=== PATIENT | female | born 1990 | race Caucasian/White ===

== ENCOUNTER 2020-03-18 16:20 | Emergency (ER) | payer OTHER ==
[2020-03-18] MEDS ORDERED: NITROFURAN MACRO 100 MG CAP PO ONE (17:01)
[2020-03-18 17:16] LABS: Urine Bacteria 20-50 /HPF (<20); Urine Culture Reflex Order REFLEXED; Urine Mucus 1+ /HPF (NONE SEEN)
[2020-03-18 17:17] LABS: Urine Blood 2+ (NEG); Urine Glucose NEGATIVE (NEG); Urine Protein 2+ (NEG); Urine pH 6.5 (5.0-7.0)
[2020-03-18 17:30] LABS: BUN Blood Urea Nitrogen 10 mg/dL (7-18); Bicarbonate 27 mmol/L (21-32); Glucose Level 93 mg/dL (74-106); Potassium 3.6 mmol/L (3.5-5.1); Sodium Level 139 mmol/L (136-145)
[2020-03-18 17:37] LABS: Absolute Lymphocytes (CBC) 2.2 K/uL (0.7-4.9); Basophils % 0.4 % (0-1.3); Hematocrit 35.4 % (36.0-45.0); Lymphocytes % 17.9 % (15.3-44.8); MPV 10.5 fL (7.6-11.3); RBC Red Blood Cell Count 3.88 M/uL (3.86-4.86)
--- NOTE | 2020-03-18 18:19 | RAD REPORT ---
EXAM DESCRIPTION: CT - Abdomen Pelvis W Contrast - 03/18/2020 5:55 pm CLINICAL HISTORY: Abdominal pain COMPARISON: none. TECHNIQUE: Computed axial tomography of the abdomen pelvis was obtained. 100 cc Isovue-300 was admin istered intravenously. Oral contrast was not requested which limits evaluation of bowel and appendix. All CT scans are performed using dose optimization technique as appropriate and may include automated exposure control or mA/KV adjustment according to patient size. FINDINGS: A 3 centimeter low to intermediate density area within the right kidney extending peripher ally. Enhancement of the right renal pelvis and right ureter wall. The liver, spleen, pancreas, adrenal and left kidney appear unremarkable. There is no evidence of diverticulitis. Appendix is not visualized IMPRESSION: These findings likely indicate right pyelonephritis/ureteritis
--- NOTE | 2020-03-18 18:32 | ER ---
Nurse's Notes [facility] Name: Gretchen Quintero Age: 29 yrs Sex: Female : 1990 Arrival Date: 03/18/2020 Time: 16:22 Bed 4 Private MD: Diagnosis: Acute tubulo-interstitial nephritis;Urinary tract infection, site not specified Presentation: 03/18 16:25 Chief complaint: Patient states: burning with urination x 2 weeks ago, pt states "It aa5 hurts really bad when I pee but it went away and now it's back". pt also reports RLQ pain x 2-3 days ago. Pt denies nausea/vomiting/diarrhea. Coronavirus screen: Client denies travel out of the [place] in the last 14 days. At this time, the client does not indicate any symptoms associated with coronavirus-19. Ebola Screen: Patient negative for fever greater than or equal to 101.5 degrees Fahrenheit, and additional compatible Ebola Virus Disease symptoms. Initial Sepsis Screen: Does the patient meet any 2 criteria? No. Patient's initial sepsis screen is negative. Does the patient have a suspected source of infection? No. Patient's initial sepsis screen is negative. Risk Assessment: Do you want to hurt yourself or someone else? Patient reports no desire to harm self or others. Onset of symptoms was 2020. 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 - Social history:: Smoking status: Patient reports the use of cigarette tobacco products, smokes one-half pack cigarettes per day. Screenin:15 Abuse screen: Denies threats or abuse. Denies injuries from another. Nutritional jl7 screening: No deficits noted. Tuberculosis screening: No symptoms or risk factors identified. Fall Risk IV access (20 points). Total Grewal Fall Scale indicates No Risk (0-24 pts). Assessment: 16:45 General: Appears in no apparent distress. comfortable, Behavior is calm, cooperative, jl7 appropriate for age. Pain: Complains of pain in right lower quadrant Pain currently is 4 out of 10 on a pain scale. Pain began 2-3 days ago. Is continuous. Neuro: Level of Consciousness is awake, alert, obeys commands, Oriented to person, place, time, situation. Cardiovascular: Patient's skin is warm and dry. Respiratory: Airway is patent Respiratory effort is even, unlabored, Respiratory pattern is regular, symmetrical. GI: Abdomen is flat, non-distended, Stools are reported to be normal. Last BM was March 18, 2020. Reports lower abdominal pain, Patient currently denies constipation, diarrhea, nausea, vomiting. 16:45 : Reports burning with urination. Derm: Skin is pink, warm \\T\\ dry. jl7 18:19 Reassessment: Patient appears in no apparent distress at this time. No changes from jl7 previously documented assessment. Patient and/or family updated on plan of care and expected duration. Pain level reassessed. Patient is alert, oriented x 3, equal unlabored respirations, skin warm/dry/pink. Vital Signs: 16:26 BP 103 / 70; Pulse 94; Resp 18 S; Temp 99.4(O); Pulse Ox 99% on R/A; Weight 54.43 kg aa5 (R); Height 5 ft. 4 in. (162.56 cm) (R); Pain 3/10; 16:45 BP 98 / 68; Pulse 88; Resp 17; Temp 99.5(O); Pulse Ox 100% ; jl7 18:18 BP 100 / 67; Pulse 85; Resp 17; Pulse Ox 100% ; jl7 16:26 Body Mass Index 20.60 (54.43 kg, 162.56 cm) aa5 ED Course: 16:22 Patient arrived in ED. ag5 16:26 Triage completed. aa5 16:27 Arm band placed on Patient placed in an exam room, on a stretcher. aa5 16:28 Nani Kenyon FNP-C is [facility]. kb 16:28 Angel Luis Hagan MD is Attending Physician. kb 16:47 Ezio Gomes RN is Primary Nurse. jl7 17:00 Missed attempt(s): 20 gauge in left forearm. Bleeding controlled, band aid applied, jl7 catheter tip intact. 17:05 Initial lab(s) drawn, by wa, sent to lab. Inserted saline lock: 20 gauge in left wrist, jl7 using aseptic technique. Blood collected. 17:15 Patient has correct armband on for positive identification. Bed in low position. Call jl7 light in reach. Side rails up X 1. Pulse ox on. NIBP on. 17:55 CT Abd/Pelvis - IV Contrast Only In Process Unspecified. EDMS 18:37 No provider procedures requiring assistance completed. IV discontinued, intact, jl7 bleeding controlled, No redness/swelling at site. Pressure dressing applied. Administered Medications: 16:50 Drug: Macrobid 100 mg Route: PO; jl7 18:19 Follow up: Response: No adverse reaction jl7 Outcome: 18:31 Discharge ordered by . kb 18:37 Discharged to home ambulatory. jl7 18:37 Condition: stable 18:37 Discharge instructions given to patient, Instructed on discharge instructions, follow up and referral plans. medication usage, Demonstrated understanding of instructions, follow-up care, medications, Prescriptions given X 1. 18:38 Patient left the ED. jl7 Addendum: 03/22/2020 08:50 Addendum: Culture Results: Positive urine culture. No further action required. Bacteria a a5 sensitive to prescribed antibiotic. Signatures: Dispatcher [employer] EDMS Nani Kenyon, COMMUNITY OUTREACH DIRECTOR-C COMMUNITY OUTREACH DIRECTOR-Anais Bah, RN RN aa5 Ezio Gomes RN RN jl7 Zoë Santos ag5
--- NOTE | 2020-03-18 18:33 | EDPHYS ---
Physician Documentation [facility] Name: Gretchen Quintero Age: 29 yrs Sex: Female : 1990 Arrival Date: 03/18/2020 Time: 16:22 Bed 4 Private MD: ED Physician Angel Luis Hagan HPI: 03/18 19:09 This 29 yrs old Female presents to ER via Ambulatory with complaints of kb Urinary Problem, Abdominal Pain. 19:09 The patient presents with urinary symptoms, dysuria. Onset: The symptoms/episode kb began/occurred 2 week(s) ago. Modifying factors: The symptoms are alleviated by nothing, the symptoms are aggravated by urinating. Associated signs and symptoms: Pertinent positives: dysuria, abd pain. Severity of symptoms: At their worst the symptoms were moderate, in the emergency department the symptoms are unchanged. The patient has not experienced similar symptoms in the past. The patient has not recently seen a physician. Pt reports dysuria for 2 weeks that she has been trying to treat at home. Now has dysuria plus RLQ pain. 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 - Social history:: Smoking status: Patient reports the use of cigarette tobacco products, smokes one-half pack cigarettes per day. ROS: 19:08 Constitutional: Negative for fever, chills, and weight loss, Cardiovascular: Negative kb for chest pain, palpitations, and edema, Respiratory: Negative for shortness of breath, cough, wheezing, and pleuritic chest pain, Back: Negative for injury and pain, MS/Extremity: Negative for injury and deformity, Skin: Negative for injury, rash, and discoloration, Neuro: Negative for headache, weakness, numbness, tingling, and seizure. 19:08 Abdomen/GI: Positive for abdominal pain, Negative for nausea, vomiting, and diarrhea. 19:08 : Positive for burning with urination. Exam: 19:08 Constitutional: This is a well developed, well nourished patient who is awake, alert, kb and in no acute distress. Head/Face: Normocephalic, atraumatic. Chest/axilla: Normal chest wall appearance and motion. Nontender with no deformity. No lesions are appreciated. Cardiovascular: Regular rate and rhythm with a normal S1 and S2. No gallops, murmurs, or rubs. Normal PMI, no JVD. No pulse deficits. Respiratory: Lungs have equal breath sounds bilaterally, clear to auscultation and percussion. No rales, rhonchi or wheezes noted. No increased work of breathing, no retractions or nasal flaring. Back: No spinal tenderness. No costovertebral tenderness. Full range of motion. Skin: Warm, dry with normal turgor. Normal color with no rashes, no lesions, and no evidence of cellulitis. MS/ Extremity: Pulses equal, no cyanosis. Neurovascular intact. Full, normal range of motion. Neuro: Awake and alert, GCS 15, oriented to person, place, time, and situation. Cranial nerves II-XII grossly intact. Motor strength 5/5 in all extremities. Sensory grossly intact. Cerebellar exam normal. Normal gait. 19:08 Abdomen/GI: Inspection: abdomen appears normal, Bowel sounds: normal, in all quadrants, Palpation: soft, in all quadrants, moderate abdominal tenderness, in the right lower quadrant. Vital Signs: 16:26 BP 103 / 70; Pulse 94; Resp 18 S; Temp 99.4(O); Pulse Ox 99% on R/A; Weight 54.43 kg aa5 (R); Height 5 ft. 4 in. (162.56 cm) (R); Pain 3/10; 16:45 BP 98 / 68; Pulse 88; Resp 17; Temp 99.5(O); Pulse Ox 100% ; jl7 18:18 BP 100 / 67; Pulse 85; Resp 17; Pulse Ox 100% ; jl7 16:26 Body Mass Index 20.60 (54.43 kg, 162.56 cm) aa5 MDM: 16:28 Patient medically screened. kb 19:07 Data reviewed: vital signs, nurses notes. Data interpreted: Pulse oximetry: on room air kb is 100 %. Interpretation: normal. Counseling: I had a detailed discussion with the patient and/or guardian regarding: the historical points, exam findings, and any diagnostic results supporting the discharge/admit diagnosis, lab results, radiology results, the need for outpatient follow up, a family practitioner, to return to the emergency department if symptoms worsen or persist or if there are any questions or concerns that arise at home. 03/18 16:28 Order name: Urine Microscopic Only; Complete Time: 17:19 kb 03/18 16:44 Order name: Basic Metabolic Panel; Complete Time: 17:32 kb 03/18 16:44 Order name: CBC with Diff; Complete Time: 17:52 kb 03/18 16:44 Order name: Urine Dipstick--Ancillary (enter results); Complete Time: 17:19 em1 03/18 16:44 Order name: Urine --Ancillary (enter results); Complete Time: 17:19 em1 03/18 17:18 Order name: Urine Culture EDHI 03/18 16:28 Order name: Urine Test (obtain specimen); Complete Time: 16:43 kb 03/18 16:28 Order name: Urine Dipstick-Ancillary (obtain specimen); Complete Time: 16:43 kb 03/18 16:44 Order name: IV Saline Lock; Complete Time: 17:07 kb 03/18 16:44 Order name: Labs collected and sent; Complete Time: 17:07 kb 03/18 17:33 Order name: CT Abd/Pelvis - IV Contrast Only; Complete Time: 18:30 kb Administered Medications: 16:50 Drug: Macrobid 100 mg Route: PO; jl7 18:19 Follow up: Response: No adverse reaction jl7 Disposition: 03/18/20 18:31 Discharged to Home. Impression: Acute tubulo-interstitial nephritis, Urinary tract infection, site not specified. - Condition is Stable. - Discharge Instructions: Pyelonephritis, Adult, [id number], Urinary Tract Infection, Adult, Teud-sm-Ltle. - Prescriptions for Cipro 500 mg Oral Tablet - take 1 tablet by ORAL route every 12 hours for 7 days; 14 tablet. - Medication Reconciliation Form, Thank You Letter, Antibiotic Education, Prescription Opioid Use form. - Follow up: Emergency Department; When: As needed; Reason: Worsening of condition. Follow up: Private Physician; When: 2 - 3 days; Reason: Recheck today's complaints, Continuance of care, Re-evaluation by your physician. Addendum: 03/23/2020 07:00 Co-signature as Attending Physician, Angel Luis velasquez n Signatures: Dispatcher [employer] EDNani Rhoades, MEAT CARRIER-C MEAT CARRIER-Ckb Angle Luis Hagan MD MD rn Anais Fonseca, RN RN aa5 Ezio Gomes, RN RN jl7 Corrections: (The following items were deleted from the chart) 03/18 18:31 18:31 03/18/2020 18:31 Discharged to Home. Impression: Acute tubulo-interstitial kb nephritis; Urinary tract infection, site not specified. Condition is Stable. Forms are Medication Reconciliation Form, Thank You Letter, Antibiotic Education, Prescription Opioid Use. kb 18:38 18:31 03/18/2020 18:31 Discharged to Home. Impression: Acute tubulo-interstitial jl7 nephritis; Urinary tract infection, site not specified. Condition is Stable. Forms are Medication Reconciliation Form, Thank You Letter, Antibiotic Education, Prescription Opioid Use. Follow up: Emergency Department; When: As needed; Reason: Worsening of condition. Follow up: Private Physician; When: 2 - 3 days; Reason: Recheck today's complaints, Continuance of care, Re-evaluation by your physician. kb
[2020-03-18 19:17] VITALS: TEMP 99.5; O2SAT 100
[2020-03-18 19:19] VITALS: BP 100/67
--- OUTSIDE RECORDS SUMMARY | 2020-03-19 05:22 | XMS REPORT | Clinical Summary ---
:1990 Author Organization [facility] Address [address] [place] [address] Care Team Providers Name Role Phone Unavailable Primary Care Provider Unavailable Allergies Active Allergy Reactions Severity Noted Date Comments Amoxicillin 03/23/2012 Itch, swelling Medications Medication Sig Dispensed Refills Start Date End Date Status haloperidoL Take 1 tablet 180 tablet 1 12/19/2019 Ac tive (HALDOL) 5 mg by mouth 2 tabletIndications: times daily. Hallucinations, visual, Psychosis, unspecified psychosis type benztropine Take 1 tablet 180 tablet 1 12/19/2019 Ac tive (COGENTIN) 0.5 mg by mouth 2 tabletIndications: times daily. Hallucinations, visual, Extrapyramidal symptom albuterol sulfate Inhale 1 Puff 1 Each 5 02/19/2020 Active 90 mcg/actuation by mouth 2 aebsIndications: times daily Uncomplicated as needed for asthma, unspecified Other asthma severity, (shortness of unspecified whether breath). persistent traZODone (DESYREL) Take 1 tablet 180 tablet 0 12/06/201806/11 Discontinued 50 mg by mouth at 20 (Side ef fects) tabletIndications: bedtime Insomnia, nightly Take unspecified type 1-2 tablets by mouth at bedtime as needed for insomnia.. haloperidol Take 1 tablet 180 tablet 0 12/06/2018 06/20/19 Di scontinued (HALDOL) 5 mg by mouth 2 20 (Reor mary) tabletIndications: times daily. Hallucinations, visual mirtazapine Take 1 tablet 90 tablet 0 12/06/2018 06/20/19 Dis continued (REMERON) 15 mg by mouth at 20 (D ose tabletIndications: bedtime a djustment) Insomnia, nightly. unspecified type, Hallucinations, visual, Depression, unspecified depression type benztropine Take 1 tablet 180 tablet 0 12/06/2018 06/20/19 Di scontinued (COGENTIN) 0.5 mg by mouth 2 20 ( Reorder) tabletIndications: times daily. Hallucinations, visual, Extrapyramidal symptom albuterol 90 Inhale 2 3 Inhaler 3 01/09/2019 03/25/20 Discon tinued mcg/actuation Puffs by 19 (Reord er) inhalerIndications: mouth 4 times Shortness of breath daily as needed for Wheezing. albuterol 90 Inhale 2 3 Inhaler 3 03/25/2019 02/19/20 Discon tinued mcg/actuation Puffs by 20 (Dupli juliet inhalerIndications: mouth 4 times Order) Shortness of breath daily as needed for Wheezing. doxycycline Take 1 20 capsule 0 03/25/2019 04/04/20 d monohydrate capsule by 19 (MONODOX) 100 mg mouth 2 times capsuleIndications: daily for 10 Folliculitis days. haloperidol Take 1 tablet 180 tablet 0 06/20/2019 10/03/19 Di scontinued (HALDOL) 5 mg by mouth 2 20 tabletIndications: times daily. Hallucinations, visual benztropine Take 1 tablet 180 tablet 0 06/20/2019 10/03/19 Di scontinued (COGENTIN) 0.5 mg by mouth 2 20 tabletIndications: times daily. Hallucinations, visual, Extrapyramidal symptom mirtazapine Take 1 tablet 90 tablet 0 06/20/2019 10/03/19 Dis continued (REMERON) 30 mg by mouth at 20 tabletIndications: bedtime Insomnia, nightly. unspecified type, Other depression doxepin (SINEQUAN) Take 1 90 capsule 0 06/20/2019 10/03/19 Discontinued 10 mg capsule by 20 capsuleIndications: mouth nightly sleep-onset at bedtime as insomnia needed for Other (insomnia). albuterol sulfate Inhale by 3 Device 2 06/26/2019 02/19/20 D iscontinued 90 mcg/actuation mouth. 20 (Re order) aebsIndications: Uncomplicated asthma, unspecified asthma severity, unspecified whether persistent albuterol 90 Inhale 2 3 Inhaler 0 06/26/2019 08/19/19 Discon tinued mcg/actuation Puffs by 20 inhalerIndications: mouth 4 times Uncomplicated daily as asthma, unspecified needed for asthma severity, Wheezing. unspecified whether persistent ALBUTEROL 90 INHALE 2 25.5 g 3 08/19/2019 02/19/20 Discon tinued mcg/actuation PUFFS BY 20 (Dupli juliet inhalerIndications: MOUTH FOUR Order) Uncomplicated TIMES DAILY asthma, unspecified NEEDED FOR asthma severity, WHEEZING unspecified whether persistent ALBUTEROL 90 INHALE 2 25.5 g 3 08/19/2019 02/19/20 Discon tinued mcg/actuation PUFFS BY 20 (Dupli juliet inhalerIndications: MOUTH FOUR Order) Uncomplicated TIMES DAILY asthma, unspecified NEEDED FOR asthma severity, WHEEZING unspecified whether persistent benztropine Take 1 tablet 60 tablet 0 10/03/2019 11/21/19 Dis continued (COGENTIN) 0.5 mg by mouth 2 20 tabletIndications: times daily. Hallucinations, visual, Extrapyramidal symptom haloperidoL Take 1 tablet 60 tablet 0 10/03/2019 11/21/19 Dis continued (HALDOL) 5 mg by mouth 2 20 tabletIndications: times daily. Hallucinations, visual mirtazapine Take 1 tablet 30 tablet 0 10/03/2019 11/21/19 Dis continued (REMERON) 30 mg by mouth at 20 tabletIndications: bedtime Insomnia, nightly. unspecified type, Other depression doxepin (SINEQUAN) Take 1 30 capsule 0 10/03/2019 11/21/19 Discontinued 10 mg capsule by 20 capsuleIndications: mouth nightly sleep-onset at bedtime as insomnia needed. benztropine Take 1 tablet 60 tablet 0 11/21/2019 12/19/19 Dis continued (COGENTIN) 0.5 mg by mouth 2 20 ( Reorder) tabletIndications: times daily. Hallucinations, visual, Extrapyramidal symptom doxepin (SINEQUAN) Take 1 30 capsule 0 11/21/2019 02/19/20 Discontinued 10 mg capsule by 20 (Therapy capsuleIndications: mouth nightly completed) sleep-onset at bedtime as insomnia needed for Other (insomnia). haloperidoL Take 1 tablet 60 tablet 0 11/21/2019 12/19/19 Dis continued (HALDOL) 5 mg by mouth 2 20 (Reor mary) tabletIndications: times daily. Hallucinations, visual mirtazapine Take 1 tablet 30 tablet 0 11/21/2019 12/19/19 Dis continued (REMERON) 30 mg by mouth at 20 (S lala effects) tabletIndications: bedtime Insomnia, nightly. unspecified type, Other depression Hospital, Clinic, or Other Ordered Dose Route Frequency Start Date End Date Status Facility Administered Medication albuterol (PROVENTIL) 2.5 2.5 mg IN PRN 01/09/2019 Ended mg /3 mL (0.083 %) nebulized solution 2.5 mgIndications: Shortness of breath lidocaine 1 % (XYLOCAINE) 10 mL SC ONCE 03/25/2019 Ended injection 10 mLIndications: Encounter for contraceptive management, unspecified type etonogestrel (NEXPLANON) 68 68 mg Sdrm ONCE 03/25/2019 1 Ended mg subdermal implant 68 mgIndications: Encounter for contraceptive management, unspecified type Active Problems Problem Noted Date Polysubstance abuse 06/18/2013 Substance induced mood disorder 06/18/2013 Borderline personality disorder 06/18/2013 Suicide gesture 06/18/2013 Amphetamine abuse-episodic 06/12/2013 Marijuana abuse 06/12/2013 Cough 06/08/2013 Mood disorder 04/09/2013 Social problem 04/09/2013 Eye swelling, left 03/23/2012 Encounter for medication refill Neuropathy Encounters Date Type Specialty Care Team Description 02/19/2020 Office Visit Internal Medicine Bulmaro Mclean, Dental ca naomy (Primary Dx); ResidentMD Swelling of gland of right eyelid; Maryse Paez, Uncomplicate d asthma, unspecified asthma severity, unspecified whether persistent 02/19/2020 Orders Only Internal Medicine Bulmaro Mclean, ResidentMD 12/19/2019 Telephonic Psychiatry Chetna Anna Psychosis, unspecified psychosis type (Primary Dx); Encounter MD Brian Hallucinations, visual; Extrapyramidal symptom 11/21/2019 Refill Psychiatry Chetna Anna Medications MD Brian 10/01/2019 Refill Psychiatry Chetna Anna MD 08/18/2019 Refill Internal Medicine Maryse Paez, Medicat ions 06/26/2019 Office Visit Internal Medicine Prince Rico MD Uncomplic ated asthma, unspecified ast hma severity, unspe cified whether persist ent (Primary Dx) 06/20/2019 Office Visit Psychiatry Chetna Anna Other willie loomis (Primary Dx); MD Brian Hallucinations, visual; Insomnia, unspe cified type; Extrapyramidal symptom; Noncompliance w ith medication treatment due to underuse of medication 03/25/2019 Ancillary Radiology Shortness of br eath Procedure 03/25/2019 Office Visit Internal Medicine Prince Rico MD Encounter for initial prescription of contraceptives, unspecified contraceptive (Primary Dx); Shortness of br eath; Encounter for c ontraceptive management, unspecified type; Folliculitis after 03/18/2019 Social History Tobacco Use Types Packs/Day Years Used Date Current Every Day Smoker Cigarettes 0.25 8 Smokeless Tobacco: Never Used Tobacco Cessation: Ready to Quit: No; Co unseling Given: Yes Alcohol Use Drinks/Week oz/Week Comments No Food Insecurity Answer Date Recorded Within the past 12 months, you worried that your food would Never true 01/09/2019 run out before you got money to buy more. Within the past 12 months, the food you bought just didn't N ever true 01/09/2019 last and you didn't have money to get more. Sex Assigned at Date Recorded Not on file Job Start Date Occupation Industry Not on file Not on file Not on file Travel History Travel Start Travel End No recent travel history available. COVID-19 Exposure Response Date Recorded In the last month, have you been in contact with No / Unsure 02/19/2020 8:22 AM CDT someone who was confirmed or suspected to have Coronavirus / COVID-19? Last Filed Vital Signs Vital Sign Reading Time Taken Comments Blood Pressure 112/73 02/19/2020 8:44 AM CDT Pulse 66 02/19/2020 8:44 AM CDT Temperature 36.7 C (98.1 F) 02/19/2020 8:44 AM CDT Respiratory Rate 16 02/19/2020 8:44 AM CDT Oxygen Saturation 98% 06/20/2019 2:14 PM [employer] Inhaled Oxygen Concentration - - Weight 57.2 kg (126 lb) 02/19/2020 8:44 AM CDT Height 162.6 cm (5' 4") 02/19/2020 8:44 AM CDT Body Mass Index 21.63 02/19/2020 8:44 AM CDT Plan of Treatment Date Type Specialty Care Team Description 04/22/2020 Telemedicine Psychiatry Chetna Anna MD [address] [place], [place] [address] [phone] 05/20/2020 Office Visit Internal Medicine Bulmaro Mclean, ResidentMD 3 month f/u [address] [place], [place] [address] 07/07/2020 Appointment Ines Verduzco MD sb [address] [place], [place] [address] Health Maintenance Due Date Last Done Comments IMM Influenza Seasonal Mar to August (>/= 19 yrs) 03/11/2020 Cervical Cancer Scrn (1 Yrs) 03/25/2020 03/25/2019 Procedures Procedure Name Priority Date/Time Associated Diagnosis Comme nts XRAY CHEST 2 VIEWS Routine 03/25/2019 2:12 Shortness of breat h Results for PM CDT this procedure are in the results section. QUANTIFERON TB Routine 03/25/2019 1:23 Shortness of breath Re sults for GOLD PLUS (BKR) PM CDT this procedu re are in the results section. TSH 0-REFLEX Routine 03/25/2019 1:23 Shortness of br eath Results for PM CDT Forgetfulness this procedure are in the results section. SYPHILIS SCREEN Routine 03/25/2019 1:23 Encounter for contrac eptive Results for FOR INFECTION PM CDT management, unspecified thi s procedure type are in the results section. VITAMIN B12 Routine 03/25/2019 1:23 Forgetfulness Results fo r PM CDT this procedure are in the results section. QUANTIFERON TB Routine 03/25/2019 1:23 Shortness of breath Re sults for GOLD PM CDT this procedure are in the results section. LIPID PROFILE Routine 03/25/2019 1:23 Screening for Results f or PM CDT hypercholesterolemia this pr ocedure are in the results section. CBC (WITHOUT Routine 03/25/2019 1:23 Shortness of breath Resu lts for DIFFERENTIAL) PM CDT this procedure are in the results section. PHOSPHORUS Routine 03/25/2019 1:23 Shortness of breath Resu lts for PM CDT this procedure are in the results section. MAGNESIUM Routine 03/25/2019 1:23 Shortness of breath Resu lts for PM CDT this procedure are in the results section. BASIC METABOLIC Routine 03/25/2019 1:23 Shortness of breath R esults for PANEL PM CDT this procedure are in the results section. HIV AG/AB COMBO Routine 03/25/2019 1:23 Encounter for contrac eptive Results for ROUTINE SCREENING PM CDT management, unspecified this procedure type are in the Forgetfulness results section. GENITAL WET MOUNT Routine 03/25/2019 11:47 Encounter for initi al Results for WITH LISA AM CDT prescription of this procedu re contraceptives, unspecified are in the contraceptive results section. CHLAM/GC DNA AMPLI Routine 03/25/2019 11:47 Encounter for cont raceptive Results for AM CDT management, unspecified this procedure type are in the results section. PAP TEST CYTOLOGY Routine 03/25/2019 11:46 Encounter for initi al Results for AM CDT prescription of this procedu re contraceptives, unspecified are in the contraceptive results section. HPV HIGH-RISK Routine 03/25/2019 11:46 Encounter for initial R esults for AM CDT prescription of this procedu re contraceptives, unspecified are in the contraceptive results section. TEST STAT 03/25/2019 11:24 Encounter for initial Results for AM CDT prescription of this procedu re contraceptives, unspecified are in the contraceptive results section. GENERAL PROCEDURE Routine 03/25/2019 11:11 Encounter for initi al Results for AM CDT prescription of this procedu re contraceptives, unspecified are in the contraceptive results Encounter for contraceptive section. management, unspecified type after 03/18/2019 Results XRAY CHEST 2 VIEWS (03/25/2019 2:12 PM CDT) Specimen Impressions Performed At IMPRESSION: [facility] No acute thoracic abnormality. Dictated By: Katey Clarke MD, 03/25/2019 2:01 PM I have reviewed the study and agree with the findings in this report. Signed By: Ernesto Donovan MD, 03/25/2019 2: 05 PM Narrative Performed At EXAMINATION: XRAY CHEST 2 VIEWS [facility] INDICATION: shortness of breath and weig ht loss in active smoker COMPARISON: Chest radiograph from 05/12 FINDINGS: PA and lateral views TUBES and LINES: None. LUNGS: Lungs are well inflated. No con solidations or edema. PLEURA: No effusions or pneumothorax. HEART AND MEDIASTINUM: The cardiomedia stinal silhouette is unremarkable. BONES AND SOFT TISSUES: No acute osseo us lesion. Soft tissues are unremarkable. UPPER ABDOMEN: No free air under the carolann phragm. Procedure Note Interface, Rad/Mammog In - 03/25/2019 2 :12 PM CDT EXAMINATION: XRAY CHEST 2 VIEWS INDICATION: shortness of breath and weig ht loss in active smoker COMPARISON: Chest radiograph from 06/08 FINDINGS: PA and lateral views TUBES and LINES: None. LUNGS: Lungs are well inflated. No cons olidations or edema. PLEURA: No effusions or pneumothorax. HEART AND MEDIASTINUM: The cardiomedias tinal silhouette is unremarkable. BONES AND SOFT TISSUES: No acute osseou s lesion. Soft tissues are unremarkable. UPPER ABDOMEN: No free air under the carolann phragm. IMPRESSION IMPRESSION: No acute thoracic abnormality. Dictated By: Katey Clarke MD, 03/25/2019 2:01 PM I have reviewed the study and agree with the findings in this report. Signed By: Ernesto Donovan MD, 03/25/2019 2: 05 PM Performing Organization Address [facility] Phone Number SMS Syphilis Screen for Infection (03/25/2019 1:23 PM CDT) Pathologist Sig nature TPA Negative Negative, Equivocal [facility] Final Report Negative Negative [facility] Specimen Blood - Arm, right Performing Organization Address [facility] Phone Number [facility] [address] [place] [address] QUANTIFERON TB GOLD PLUS (BKR) (03/25/2019 1:23 PM CDT) QuantiFERON Criteria Comment [facility] Comment: The QuantiFERON-TB Gold Plus result is determined by s ubtracting the Nil value from either TB antigen (Ag) tube. The mi togen tube serves as a control for the test. Quantiferon TB1 0.06 IU/mL [facility] Quantiferon TB2 0.04 IU/mL [facility] QuantiFERON Nil Value 0.05 IU/mL [facility] QuantiFERON Mitogen >10.00 IU/mL [facility] Value Specimen Blood - Arm, right Narrative Performed At Performed at: [facility] [address] [id number] Carpenter Helper: Meenu Cadena MD, Phone: [phone] Performing Organization Address [facility] Phone Number [address] [address] HIV-1/HIV-2 Routine Screening (03/25/2019 1:23 PM CDT) Pathologist [facility] HIV Ag/Ab Combo Negative Negative [facility] Specimen Blood - Arm, right Performing Organization Address [facility] Phone Number [facility] [address] [place] [address] [phone] Quantiferon TB Gold (In Tube) (03/25/2019 1:23 PM CDT) Pathologist [facility] QuantiFERON Incubation [facility] Incubation performed. QuantiFERON TB Gold Negative Negative [facility] Plus Specimen Blood - Arm, right Narrative Performed At Performed at: [facility] [id number] Carpenter Helper: David Hatch MD, Phone: [phone] Performed at: [address] [id number] Carpenter Helper: Meenu Cdaena MD, Phone: [phone] Performing Organization Address [facility] Phone Number [phone] [place] [address] Thyroid Stimulating Hormone, Baseline (03/25/2019 1:23 PM CDT) Pathologist [facility] TSH 0 1.77 0.57 - 3.74 [facility] Comment: uIU/mL If , please see the following reference ranges (not verified by lab): 1st Trimester: 0.05 -3.70 uIU/mL 2nd Trimester: 0.31 -4.35 uIU/mL 3rd Trimester: 0.41 - 5.18 uIU/mL Specimen Blood - Arm, right Performing Organization Address [facility] Phone Number [facility] [address] [place] [address] Vitamin B12 (03/25/2019 1:23 PM CDT) Pathologist [facility] nature Vitamin B12 370 See comment pg/mL [facility] Comment: Normal: 180-914 pg/mL Intermittent: 145-180 pg/mL Deficient: <=145.0 pg/mL Specimen Blood - Arm, right Performing Organization Address [facility] Phone Number [facility] [address] [place] [address] Phosphorus (03/25/2019 1:23 PM CDT) Pathologist Sig nature Phosphorus 3.6 2.5 - 5.0 mg/dL [facility] Specimen Blood - Arm, right Performing Organization Address [facility] Phone Number [facility] [place] [address] [facility] [address] [address] Magnesium (03/25/2019 1:23 PM CDT) Pathologist Sig nature Magnesium 1.9 1.9 - 2.7 mg/dL [facility] Specimen Blood - Arm, right Performing Organization Address [facility] Phone Number [facility] [place] [address] [facility] [address] [address] Lipid Profile (03/25/2019 1:23 PM CDT) Cholesterol 141.0 <=200.0 mg/dL [facility] Comment: Desirable: < 200.0 mg/dL Borderline: 200 - 240 mg/dL High Risk: > 240 mg/dL Triglyceride 131 <150 mg/dL [facility] Comment: Normal: < 150.0 mg/dL Borderline: 150-199 mg/dL High: 200-499 mg/dL Very High: >= 500 mg/dL HDL 41.0 See Reference [facility] Comment: Range Narrative. Increased CHD Risk: < 40.0 mg/dL mg/dL Decreased CHD Risk: > 60 mg/dL LDL 74 <100 mg/dL [facility] Comment: Optimal: < 100.0 mg/dL Near Optimal: 120-129 mg/dL Borderline: 130-159 mg/dL High: 160-189 mg/dL Very High: >=190 mg/dL Patient Fasting? Yes [facility] Specimen Blood - Arm, right Performing Organization Address [facility] Phone Number [facility] [place] [address] [phone] [facility] [address] [address] CBC (without differential) (03/25/2019 1:23 PM CDT) Pathologist Sig nature WBC 7.5 4.5 - 11.0 K/uL [facility] RBC 3.98 (L) 4.20 - 5.40 M/uL [facility] Hemoglobin 11.7 (L) 12.0 - 16.0 g/dL [facility] Hematocrit 36.4 (L) 37.0 - 47.0 % [facility] MCV 91.5 82.0 - 92.0 fL [facility] MCH 29.4 27.0 - 32.0 pg [facility] MCHC 32.1 32.0 - 36.0 g/dL [facility] RDW 48.4 (H) 36.4 - 46.3 fL [facility] Platelet 169 150 - 400 K/uL [facility] Mean Platelet Volume 11.8 9.4 - 12.4 fL [facility] Specimen Blood - Arm, right Performing Organization Address City/[facility] Phone Number [facility] [place] [address] [facility] [address] [address] [phone] Basic Metabolic Panel (03/25/2019 1:23 PM CDT) Pathologist Sig nature Sodium 142 136 - 145 mmol/L [facility] Potassium 4.3 3.5 - 5.1 mmol/L [facility] Chloride 107 98 - 107 mmol/L [facility] CO2 27 21 - 31 mmol/L [facility] Urea Nitrogen 10.0 7.0 - 25.0 mg/dL [facility] Creatinine 0.7 0.6 - 1.2 mg/dL [facility] Glucose 97 70 - 110 mg/dL [facility] Calcium 9.3 8.6 - 10.3 mg/dL [facility] GFR, Estimated >90 >=90 mL/min/1.73 m2 [facility] Anion Gap 8 5 - 16 mmol/L [facility] Specimen Blood - Arm, right Performing Organization Address City/[facility] Phone Number [facility] [place] [address] [facility] [address] [address] CHLAM/GC DNA AMPLI [CHGC] (03/25/2019 11:47 AM CDT) Pathologist Sig nature Chlamydia trachomatis Negative Negative [facility] N. gonorrhoeae Negative Negative [facility] Specimen Genital - Voided, urine Narrative Performed At This test utilizes [employer] Aptima Combo 2 Assay for ta rget [facility] amplification of rRNA for the qualitative detection of Chlamydia trachomatis and Neisseria gonorrhoeae. Performing Organization Address City/State/Zipcode Phone Number [facility] [address] [place], [place] [id number] Genital Wet Mount with LISA (03/25/2019 11:47 AM CDT) Yeast by Wet Mount No Yeast seen [facility] Yeast by LISA No Yeast seen [facility] Clue Cells No Clue cells seen [facility] Epithelial Cells Epithelial cells [facility] seen WBCs WBCs seen [facility] Trichomonas No Trichomonas seen [facility] Specimen Genital - Cervix, NOS Performing Organization Address [facility]/Zipcode Phone Number [facility] [place] [address] [facility] [address] [address] Pap Test Cytology (03/25/2019 11:46 AM CDT) Case Report Gynecologic Cytology Report Case: [id number] DI Authorizing Provider: Paul Toth MD Collected: 03/25/2019 11:46 AM LABORATORY Ordering Location: [facility] [place] [facility] Received: 03/25/2019 01:15 PM First Screen: Danyell Mary CT (ASCP) Pathologist: Maria Del Carmen Fikn MD Specimen: Liquid-Based Preparation, manual, Cervicovaginal Specimen Adequacy Satisfactory for [facility] evaluation, LABORATORY endocervical/transfo rmation zone component present General EPITHELIAL CELL [facility] Categorization ABNORMALITY LABORATORY Interpretation ATYPICAL SQUAMOUS [facility] Electron ically CELLS OF LABORATORY signed by KENAN Harrison MD (ASC-US) on 03/31/2019 a t 1:26 PM Non Neoplastic Reactive cellular [facility] Findings changes / Repair LABORATORY Pertinent Clinical overdue for pap [facility] Information smear LABORATORY Educational Note Specimen Received: [facility] One Thinprep Vial Received LABORATORY The pap smear/test is a scre ening test for cervical cancer. As with screening procedures, both false negative and false positive results may occur. Hence, the results should be interpreted in the cont ext of patient's history and current clinical informat ion. History of No [facility] Abnormality LABORATORY Treatment History None/NA [facility] Menstrual Status Pre-menopausal [facility] HPV Vaccine Status No [facility] Current Implant [facility] Contraceptive LABORATORY Specimen Liquid Based Pap - Cervicovaginal Performing Organization Address [facility] Phone Number [facility] [address] [place] [address] HPV High-Risk (03/25/2019 11:46 AM CDT) Pathologist Sig nature HPV High Risk Negative Negative [facility] Specimen Liquid Based Pap - Cervicovaginal Narrative Performed At The [facility] HPV Assay is an in vitro nucleic acid ampli fication [facility] test for the qualitative detection of E6/E7 viral mess enger RNA (mRNA) from 14 high-risk types of human papillomavirus (HPV) in cervical specimens. The high-risk HPV types detected b y the assay include: 16,18,31,33,35,39,45,51,52,56,58,59,66, and 6 8. Performing Organization Address [facility] Phone Number [facility] [address], [place] [id number] [phone] URINE TEST (03/25/2019 11:24 AM CDT) Pathologist Sig nature Negative Negative [facility] Specimen Urine Performing Organization Address [facility] Phone Number [facility] [place] [address] [facility] [address] [place] [address] General Procedure (03/25/2019 11:11 AM CDT) Narrative Performed At Paul Grewal MD 03/27/2019 1: 40 PM General Procedure Date/Time: 03/27/2019 1:39 PM Performed by: Paul Grewal MD Authorized by: Paul Grewal MD Preparation: Patient was prepped and draped in the usu al sterile fashion. Local anesthesia used: yes Anesthesia: local infiltration Anesthesia: Local anesthesia used: yes Local Anesthetic: lidocaine 1% without e pinephrine Anesthetic total: 7 mL Sedation: Patient sedated: no Specimen's removed: nexplanon Estimated blood loss: 2 Grafts and Implants: nexplanon Patient tolerance: Patient tolerated the procedure wel l with no immediate complications after 03/18/2019 Insurance Payer Benefit Plan / Subscriber ID Effective Phone Address T ype Group Dates [employer] xxxxxxxxx 2019-Prese [phone] [address] [phone] [place] [address] [place] xxxxxxxxx 2019-Prese [phone] [phone] [place] [address] Advance Directives Code Status Date Activated Date Inactivated Comments Full Code 06/18/2013 4:48 AM 06/19/2013 6:05 PM Full Code 06/09/2013 2:33 AM 06/13/2013 5:53 PM
--- OUTSIDE RECORDS SUMMARY | 2020-03-19 05:22 | XMS REPORT | Clinical Summary ---
:1990 Author Organization [facility] Address [address] [place] [address] Care Team Providers Name Role Phone Asked, Pcp Primary Care Provider Unavailable Allergies Active Allergy Reactions Severity Noted Date Comments Amoxicillin Swelling 10/08/2016 Medications No known medications Active Problems Problem Noted Date Cocaine abuse with cocaine-induced mood disorder 10/08 Social History Tobacco Use Types Packs/Day Years Used Date Never Assessed Sex Assigned at Date Recorded Not on file Last Filed Vital Signs Not on file Plan of Treatment Not on file Results Not on fileafter 03/18/2019 Advance Directives For more information, please contact: [phone] Type Date Recorded 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
--- OUTSIDE RECORDS SUMMARY | 2020-03-19 05:23 | XMS REPORT | Continuity of Care Document ---
:1990 Author Organization [facility] t Address [address] [place] [address] Care Team Providers Name Role Phone Asked, Pcp Primary Care Physician Unavailable Flavia TRAN Attending Clinician Unavailable Susannah SNOW Attending Clinician Unavailable Tutu HIGGINS Attending Clinician Unavailable Shoshana MELTON, E Attending Clinician Jacky MELTON Attending Clinician Payers Payer Name Policy Type Policy Number Effective Date Expiration Date S demarcus [employer] [id number] 2019 HEALTH 00:00:00 [place] [id number] 2019 00:00:00 [facility] 2019 Espinoza watkins [employer] 00:00:00 Health MENTAL [id number] [address] [place] xxxxxxxxx 2019 Espinoza watkins MEDICAIDxxxxxxxxx3/ 00:00:00 Healt [id number], [place] [address] Problems Condition Condition Condition Status Onset Resolution Last Treating Co mments Source Name Details Category Date Date Treatment Clinician Date Cocaine Cocaine Disease Active [place] abuse with abuse with 4-30 Me thodi cocaine-in cocaine-in 00:00: st duced mood duced mood 00 disorder disorder Polysubsta Polysubsta Disease Active H arris nce abuse nce abuse 1-08 Heal th 00:00: 00 Substance Substance Disease Active Vasile ris induced induced 06-18 Health mood mood 00:00: disorder disorder 00 Borderline Borderline Disease Active H arris personalit personalit 06-18 alth y disorder y disorder 00:00: 00 Suicide Suicide Disease Active [place] gesture gesture 06-18 Health 00:00: 00 Amphetamin Amphetamin Disease Active H arris e e 06-12 Health abuse-epis abuse-epis 00:00: odic odic 00 Marijuana Marijuana Disease Active Vasile ris abuse abuse 06-12 Health 00:00: 00 Cough Cough Disease Active 2012-06 [facility] 2 Health 00:00: 00 Mood 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 [facility] disorder disorder Health 00:00: 00 Social Social Disease Active 2012-06 [place] problem problem Health 00:00: 00 Eye Eye Disease Active 2011-06 [place] swelling, swelling, 0-13 Heal th left left 00:00: 00 Encounter Encounter Disease Active [facility] ris for for Health medication medication refill refill Neuropathy Neuropathy Disease Active [facility] Health Allergies, Adverse Reactions, Alerts Allergy Allergy Status Severity Reaction(s) Onset Inactive Treating Comm ents Source Name Type Date Date Clinician Amoxicil Propensi Active Swelling [place] lobo ty to 4-30 Methodi adverse 00:00: st reaction 00 s to drug Amoxicil Propensi Active 2011-06 Itch, [place] lobo ty to 0-13 swelling Health adverse 00:00: reaction 00 s to drug Social History Social Habit Start Date Stop Date Quantity Comments Source History of tobacco Cigarette Smoker [facility] use Sex Assigned At [facility] alth Exposure to Not sure [facility] SARS-CoV-2 (event) Cigarettes smoked 2020-02-19 2020-02-[address] [facility] current (pack per 00:00:00 00:00:00 day) - Reported Cigarette 2020-02-19 2020-02-[address] [facility] pack-years 00:00:00 00:00:00 Alcohol intake 2020-02-19 2020-02-[address] [facility] lt 00:00:00 00:00:00 non-drinker of alcohol (finding) History [facility] Food 2019-01-09 2019-01-[address] [facility] Worry 00:00:00 00:00:00 History [facility] Food 2019-01-09 2019-01-09 1 [facility] Scarcity 00:00:00 00:00:00 Smoking Status Start Date Stop Date Source Current every day smoker 2020-02-19 00:00:00 [facility] Medications Ordered Filled Start Stop Current Ordering Indication Dosage Frequency Signature Comments Components Source Medication Medication Date Date Medication? Clinician (SIG) Name Name albuterol Yes Uncomplicat 1{puff} Inhale 1 [place] sulfate 90 9-10 ed asthma, Puff by [facility] mcg/actuati 00:00: unspecified mouth 2 on aebs 00 asthma times severity, daily as unspecified needed for whether Other persistent (shortness of breath). haloperidoL 2019- Yes Psychosis, 5mg Q.5D Take 1 [place] (HALDOL) 5 7-10 unspecified tablet by [facility] mg tablet 00:00: psychosis mouth 2 00 type times daily. benztropine Yes Extrapyrami .5mg Q.5D Take 1 [place] (COGENTIN) 7-10 elda symptom tablet by [facility] 0.5 mg 00:00: mouth 2 tablet 00 times daily. doxepin 2019- No sleep-onset 10mg Take 1 [place] (SINEQUAN) 6-10 insomnia capsule by [facility] 10 mg 00:00: 00:00 mouth capsule 00 :00 nightly at bedtime as needed for Other (insomnia) . benztropine 2019- No Extrapyrami .5mg Q.5D Take 1 [place] (COGENTIN) 6 07-10 elda symptom tablet by [facility] 0.5 mg 00:00: 00:00 mouth 2 tablet 00 :00 times daily. haloperidoL 2019-0 2019- No Hallucinati 5mg Q.5D Take 1 [place] (HALDOL) 5 6- 07-10 ons, visual tablet by [facility] mg tablet 00:00: 00:00 mouth 2 00 :00 times daily. mirtazapine 2019-0 2020- No Other 30mg Take 1 Britton rris (REMERON) 6 07-10 depression tablet by [facility] 30 mg 00:00: 00:00 mouth at tablet 00 :00 bedtime nightly. benztropine 2019- 2020- No Extrapyrami .5mg Q.5D Take 1 [place] (COGENTIN) 10-02-12 elda symptom tablet by [facility] 0.5 mg 00:00: 00:00 mouth 2 tablet 00 :00 times daily. haloperidoL 2019-2019- No Hallucinati 5mg Q.5D Take 1 [place] (HALDOL) 5 10-02-12 ons, visual tablet by Health mg tablet 00:00: 00:00 mouth 2 00 :00 times daily. mirtazapine 2019- No Other 30mg Take 1 Britton rris (REMERON) 10-02 depression tablet by Health 30 mg 00:00: 00:00 mouth at tablet 00 :00 bedtime nightly. doxepin 2019- No sleep-onset 10mg Take 1 [place] (SINEQUAN) 10-02 insomnia capsule by Health 10 mg 00:00: 00:00 mouth capsule 00 :00 nightly at bedtime as needed. ALBUTEROL 2019-2019- No Uncomplicat INHALE 2 [place] [address] 3-10 -10 ed asthma, PUFFS BY [facility] mcg/actuati 00:00: 00:00 unspecified MOUTH FOUR on inhaler 00 :00 asthma TIMES severity, DAILY unspecified NEEDED FOR whether WHEEZING persistent ALBUTEROL 2019-2019- No Uncomplicat INHALE 2 [place] [address] 3-10 -10 ed asthma, PUFFS BY [facility]al [facility] mcg/actuati 00:00: 00:00 unspecified MOUTH FOUR on inhaler 00 :00 asthma TIMES severity, DAILY unspecified NEEDED FOR whether WHEEZING persistent albuterol 2019-2019- No Uncomplicat Inhale by [facility] 90 - 09-10 ed asthma, mouth. Health mcg/actuati 00:00: 00:00 unspecified on aebs 00 :00 asthma severity, unspecified whether persistent albuterol 2019-2019- No Uncomplicat 2{puff} Inhale 2 [place] [address] 1-16 03-10 ed asthma, Puffs by [facility] mcg/actuati 00:00: 00:00 unspecified mouth 4 on inhaler 00 :00 asthma times severity, daily as unspecified needed for whether Wheezing. persistent haloperidol 2019-2019- No Hallucinati 5mg Q.5D Take 1 [place] (HALDOL) 5 06-20 04-24 ons, visual tablet by Health mg tablet 00:00: 00:00 mouth 2 00 :00 times daily. benztropine 2019- No Extrapyrami .5mg Q.5D Take 1 [place] (COGENTIN) 06-20 elda symptom tablet by [facility] 0.5 mg 00:00: 00:00 mouth 2 tablet 00 :00 times daily. mirtazapine 2019- No Other 30mg Take 1 Britton rris (REMERON) 06-20 depression tablet by [facility] 30 mg 00:00: 00:00 mouth at tablet 00 :00 bedtime nightly. doxepin 2019- No sleep-onset 10mg Take 1 [place] (SINEQUAN) 06-20 insomnia capsule by [facility] 10 mg 00:00: 00:00 mouth capsule 00 :00 nightly at bedtime as needed for Other (insomnia) . etonogestre 2018-06- No Encounter 68mg [place] l 0-15 10-15 for Health (NEXPLANON) 12:30: 12:45 contracepti 68 mg 00 :00 ve subdermal management, implant 68 unspecified mg type lidocaine 1 2018-06- No Encounter 10mL [place] % 0-15 10-15 for Health (XYLOCAINE) 12:15: 12:45 contracepti injection 00 :00 ve 10 mL management, unspecified type albuterol 2018-06- No Shortness 2{puff} Inhale 2 [place] 90 0-15 09-10 of breath Puffs by Healt h mcg/actuati 00:00: 00:00 mouth 4 on inhaler 00 :00 times daily as needed for Wheezing. doxycycline 2018-06- No Folliculiti 100mg Q.5D Take 1 [place] monohydrate 0-15 10-25 s capsule by [facility] (MONODOX) 00:00: 23:59 mouth 2 100 mg 00 :00 times capsule daily for 10 days. albuterol 2019- No Shortness 2.5mg H arris (PROVENTIL) 01-09 01-28 of breath He alth 2.5 mg /3 11:07: 23:59 mL (0.083 00 :00 %) nebulized solution 2.5 mg albuterol 2018- No Shortness 2{puff} Inhale 2 [place] 90 8- 10-15 of breath Puffs by Healt h mcg/actuati 00:00: 00:00 mouth 4 on inhaler 00 :00 times daily as needed for Wheezing. traZODone 2019- No Insomnia, 50mg Take 1 [place] (DESYREL) 12-06 unspecified tablet by [facility] 50 mg 00:00: 00:00 type mouth at tablet 00 :00 bedtime nightly Take 1-2 tablets by mouth at bedtime as needed for insomnia.. haloperidol Hallucinati 5mg Q.5D Take 1 [place] (HALDOL) 5 12-06 ons, visual tablet by [facility] mg tablet 00:00: 00:00 mouth 2 00 :00 times daily. mirtazapine Depression, 15mg Take 1 [place] (REMERON) 12-06 unspecified tablet by [facility] 15 mg 00:00: 00:00 depression mouth at tablet 00 :00 type bedtime nightly. benztropine Extrapyrami .5mg Q.5D Take 1 [place] (COGENTIN) 12-06 elda symptom tablet by [facility] 0.5 mg 00:00: 00:00 mouth 2 tablet 00 :00 times daily. Vital Signs Vital Name Observation Time Observation Value Comments Source Systolic blood pressure 2020-02-19 08:44:00 112 mm[Hg] [facility] Diastolic blood pressure 2020-02-19 08:44:00 73 mm[Hg] [facility] Heart rate 2020-02-19 08:44:00 66 /min [facility] Body temperature 2020-02-19 08:44:00 36.72 [facility] Respiratory rate 2020-02-19 08:44:00 16 /min [facility] Body height 2020-02-19 08:44:[address] [facility] Body weight 2020-02-19 08:44:[address] [facility] BMI 2020-02-19 08:44:00 21.63 kg/m2 [facility] Oxygen saturation in 2019-06-20 14:14:00 98 /min [facility] Arterial blood by Pulse oximetry Procedures Procedure Date / Time Performed Performing Clinician Sourc e XRAY CHEST 2 VIEWS 2019-03-25 14:12:00 [facility] HIV AG/AB COMBO ROUTINE 2019-03-25 13:23:00 [facility] is Health SCREENING BASIC METABOLIC PANEL 2019-03-25 13:23:00 [facility] MAGNESIUM 2019-03-25 13:23:00 [facility]OS[facility] 2019-03-25 13:23:00 [facility] CBC (WITHOUT DIFFERENTIAL) 2019-03-25 13:23:00 JackyPrince [facility] LIPID PROFILE 2019-03-25 13:23:00 [facility] QUANTIFERON TB GOLD 2019-03-25 13:23:00 [facility]Prince [facility] VITAMIN B12 2019-03-25 13:23:00 JackyPrince [facility] SYPHILIS SCREEN FOR 2019-03-25 13:23:00 JackyPrince [facility] INFECTION TSH 0-REFLEX 2019-03-25 13:23:00 JackyPrince [facility] QUANTIFERON TB GOLD PLUS 2019-03-25 13:23:00 JackyPrince [facility] (BKR) CHLAM/GC DNA AMPLI 2019-03-25 11:47:00 JackyPrince [facility] GENITAL WET MOUNT WITH LISA 2019-03-25 11:47:00 JackyPrince [facility] HPV HIGH-RISK 2019-03-25 11:46:00 [facility] PAP TEST CYTOLOGY 2019-03-25 11:46:00 JackyPrince [facility] TEST 2019-03-25 11:24:00 [facility] GENERAL PROCEDURE 2019-03-25 11:11:58 Paul Grewal [facility] Plan of Care Planned Activity Planned Date Details Comments Source Future Scheduled Test 2020-03-25 00:00:[address] [facility] malignant neoplasm of cervix (procedure) [code = 326002897] Future Scheduled Test 2020-03-11 00:00:[address] [facility] Seasonal Mar to August (>/= 19 yrs) [code = IMM Influenza Seasonal Mar to August (>/= 19 yrs)] Encounters Start End Encounter Admission Attending Care Care Encounter Source Date/Time Date/Time Type Type Clinicians Facility Department ID 2020-07-07 2020-07-[address] [facility] [id number] [place] 00:00:00 00:00:00 [facility] 2020-05-20 2020-05-[address] [facility] [id number] [place] 00:00:00 00:00:00 Health 2020-04-22 2020-04-[address] [facility] [id number] [place] 00:00:00 00:00:00 Health 2020-04-16 2020-04-[address] [facility] [id number] [place] 00:00:00 00:00:00 [facility] 2020-02-19 2020-02-19 Outpatient [facility] [id number] [place] 08:44:11 09:50:54 SHERRY [facility] 2019-12-19 2019-12-[address] [facility] [id number] [place] 07:14:13 07:14:13 [facility] 2019-10-17 2019-10-[address] [facility] [id number] [place] 00:00:00 00:00:00 [facility] 2019-08-29 2019-08-[address] [facility] [id number] [place] 00:00:00 00:00:00 [facility] 2019-08-21 2019-08-[address] [facility] [id number] [place] 00:00:00 00:00:00 [facility] 2019-07-18 2019-07-[address] [facility] [id number] [place] 00:00:00 00:00:00 [facility] 2019-06-26 2019-06-[address] [facility] [id number] [place] 09:36:52 09:36:52 [facility] 2019-06-20 2019-06-[address] [facility] [id number] [place] 15:00:25 15:00:25 Health 2019-03-25 2019-03-[address] [facility] [id number] [place] 13:29:05 13:29:05 Health 2019-03-25 2019-03-[address] [facility] [id number] [place] 13:16:25 13:16:25 Health 2019-03-25 2019-03-[address] [facility] [id number] [place] 10:33:06 10:33:06 Health 2019-03-25 2019-03-[address] [facility] [id number] [place] 00:00:00 00:00:00 [facility] 2019-03-25 2019-03-[address] [facility] [id number] [place] 00:00:00 00:00:00 Health 2019-03-04 2019-03-[address] [facility] [id number] [place] 09:34:32 09:34:32 Health 2019-02-28 2019-02-[address] [facility] [id number] [place] 00:00:00 00:00:00 [facility] 2019-01-13 2019-01-[address] [facility] [id number] [place] 00:00:00 00:00:00 [facility] 2019-01-09 2019-01-[address] [facility] [id number] [place] 09:23:26 09:23:26 [facility] 2018-12-06 2018-12-[address] [facility] [id number] [place] 12:26:40 12:26:40 [facility] 2018-10-10 2018-10-[address] [facility] [id number] [place] 00:00:00 00:00:00 [facility] 2018-09-20 2018-09-[address] [facility] [id number] [place] 13:19:04 13:19:04 [facility] 2018-09-06 2018-09-[address] [facility] [id number] [place] 00:00:00 00:00:00 [facility] 2018-08-16 2018-08-[address] [facility] [id number] [place] 00:00:00 00:00:00 [facility] 2018-05-31 2018-05-[address] [facility] [id number] [place] 14:22:43 14:22:43 [facility] 2018-04-19 2018-04-[address] [facility] [id number] [place] 14:54:22 14:54:22 [facility] 2018-04-19 2018-04-[address] [facility] [id number] [place] 13:54:27 13:54:27 [facility] 2018-04-16 2018-04-[address] [facility] [id number] [place] 00:00:00 00:00:00 [facility] 2018-03-22 2018-03-[address] [facility] [id number] [place] 14:01:40 14:01:40 [facility] 2018-03-22 2018-03-[address] [facility] [id number] [place] 00:00:00 00:00:00 [facility] 2018-03-01 2018-03-[address] [facility] [id number] [place] 00:00:00 00:00:00 [facility] 2018-02-05 2018-02-[address] [facility] [id number] [place] 00:00:00 00:00:00 [facility] 2018-02-05 2018-02-[address] [facility] [id number] [place] 00:00:00 00:00:00 [facility] 2018-02-01 2018-02-[address] [facility] [id number] [place] 13:11:11 13:11:11 [facility] 2018-01-29 2018-01-[address] [facility] [id number] [place] 00:00:00 00:00:00 Health 2018-01-28 2018-01-28 Emergency [facility] [id number] [place] 08:37:35 08:37:35 Health 2018-01-23 2018-01-23 Emergency [facility] [id number] [place] 10:45:00 10:45:00 Health Results Test Description Test Time Test Comments Results Result Comments Source Pap Test Cytology 2019-03-31 13:26:00 Test Item Value Reference Range Interpretation Comme nts Case Report (test code = 463559122) Gynecologic Cytology Report Case: [id number] Authorizing Provider: Paul Grewal MD Collected: 03/25/2019 11:46 AM Ordering Location: [facility] Received: 03/25/2019 01:15 PM First Screen: Danyell Mary CT (ASCP) Pathologist: Maria Del Carmen Fink MD Specimen: Liquid-Based Preparation, manual, Cervicovaginal Specimen Adequacy (test code = Satisfactory for evaluation, 206931323) endocervical/transformation zone component present General Categorization (test code = EPITHELIAL CELL ABNORMALITY 972985582) Interpretation (test code = 703649050) ATYPICAL SQUAMOUS CELLS O F UNDETERMINED SIGNIFICANCE (ASC-US) Non Neoplastic Findings (test code = Reactive cellular changes / Re pair [id number]) Pertinent Clinical Information (test p8utiRBeRNKgm4gqQDOwjTScFhTyKb NcZnRuYmp code = 62283255) 6MAZgmyC4Buc3SHUmLVtttQ0xPHJxRTudN6bpzw WjgBNcETItCOq4fI1iuPkmvQ3uEqSvVnPnZZDbo mJsMUMaGTWieoCdKEYkv61yOWShhLHkMW2= Educational Note (test code = 023751366) r9nzcPBtKMEtb YJdGrBhUGJbWIFbu0cxYVNszGW bDaGaUaIePpQwZevwyWMoRWJwXjZwb5eqv994oS Tro2jkBENoIkN8iPUwRTNerWYcA182RQGiMSgjf 0syw7ZaMCStmPYuv3L4NXKQyqxneSh7mQlcN80l f6R5WrkfA4fjUCSjTEPeO1TsNO5tPJRhWfu2TTP 8UNL5HKMfQPMsE2VxQN0aBZVoySTtTJg8g4vmfK vxZZPzYFF0y0zrUMgbdoElRH2you4tiLj3q7hjy cIyDCQlCGYyyJZXGEYrJ8MilLruHd7qyQg1aHqr XihcFGM8Kfg7PC6bvp32ajd3bKnfIRIngblaAbA 3SXurSMJtdemdJTt9JCgvXEQxhAT2RRRftFKnW0 TbWHIaQY2nzto3MNF8OTjfHXBjArY2IXIgaUFaT IOjtUdiVZend850CWE7DqFbPG1nP8Lly0O2kM4x kUCrLQLccKHiDiFpRXKjjj3jaTDoVLlfo2GdGKF 5ynB5fEKufYVgFACpPU08Lqrfu3WuRqyuk9OvC4 1xjVR2GAkhr4jqRK3bPzA3qfAoKThhh0rvaL3sZ mZ4RMhrGM5uEV4bMVUnfY6erdirVYSqZbBtlkdy ECMcsDwitrIgZc4xcMftLTO8AQakX6rxjH3kZvW 5DVldB3ldfU8fTGk4PDhscWK4MSYtdZ0aCG2yql gas8gyUZswQVmuLSUjmiP4zvB3GMEikONnD8Gny K4wJBRsOE6wpmgla6bqAXQ4UHcjBUSxNDA4ZvDo REZwb9Ywkro4AkTyf6ThdYVoWFnpU39ei034ZRI qzkOoR6vfdUMxoemxpHIcyptvJGwjggX5BCPtqw Fab6YdQTIkRHA0MYsnIPxnjTMyLBNfoBpxx9hqL 3RscGFyXHBsYWluXGYxXGZzMjBcbGFuZzEwMzNc sFatsZedNIcfEoFhGJZoWTbiN4vzYeDaP4CdRYG sPyRnCmDLsSJnkA4fopLMQRSrlGIiUZveyKRtFJ BsYWluXGYxXGZzMjBcbGFuZzEwMzNcaGljaFxmM CheEaQsTGSvOBgsY2gkMwMgD2CwYTQuBvRzP72m ACIbsA1hobJxZJYpZRyvNeFhDGa6SLSidPekcR2 rYfObBnMcCskrWG5fQAJnZ6yijLIlCDWiFZCvG4 nwKbRmhE8gcXrwPAvtOpOcSxEjJcxpKVWrpuuoJ AKprZsreK1iPjVtUyKuIxmxPU4tAVGbW3xkeSMz FNWvPJQhA2flHgEacH7lkLatETzbTeHbCuCvMid aqOLutDwiYEAkHPGrECRzl60zYJYvxHOfoBLeco UjBIYoqoWftowxRjP3KNW1EWVaelMvSRP2dICnx WMbDQ4gPAHsFL5aHXWgq5o1cAXkP8BpEP7eknrl lUNlV5ApqAVzfrrvYd79qFReLEysRTNbTZwfxBa 0FDNtehIpVkPur3SurJ5dzIUudjXuzxHglMp1lz NnRTjdh2HepETdKX7wVKLjB2NrCCNzCFItWMI2p CNyJZLyu4GiHDXoXULwlpAuarVfKIOiVCUwuuP0 jGLjU43nzXM7cDOcNgNgSFYcHA55L0CexQnwrK6 xsCCemuVoS7RupcYavGKbhSdprJChqXUyvnBdpt 8dxDqvkl2bYEPgayefKTMcPGVjpNWuIAV9mTUoh gCmqOivoCtzfR0xKqEwHxQzWOjbeNFtwlfpDWgu ieVdZOoblroyIWVtNUhrK8esYnGvTQVysGsnAVe jd7FsYTZhLJUmNtMmlQXazU== History of Abnormality (test code = No 06415477) Treatment History (test code = 84271608) None/NA Menstrual Status (test code = 17598402) Pre-menopausal HPV Vaccine Status (test code = No 69552232) Current Contraceptive (test code = Implant 79635815) [id number] 14:18:00 Test Item Value Reference Range Interpretation Comments HPV High Risk (test Negative Negative code = 88811759) SARA (test code = SARA) The APTIMA HPV Assay is an in vitro nucleic acid amplification test for the qualitative detection of E6/E7 viral messenger RNA (mRNA) from 14 high-risk types of human papillomavirus (HPV) in cervical specimens. The high-risk HPV types detected by the assay include: 16,18,31,33,35,39,45,5 1,52,56,58,59,66, and 68. Lab Interpretation Normal (test code = 71620-1) [facility]/ DNA AMPLI [[facility]]2019-03-25 20:39:00 Test Item Value Reference Range Interpretation Comments Chlamydia trachomatis Negative Negative (test code = 03788-4) N. gonorrhoeae (test Negative Negative code = 40315-1) SARA (test code = SARA) This test utilizes [employer] Aptima Combo 2 Assay for target amplification of rRNA for the qualitative detection of Chlamydia trachomatis and Neisseria gonorrhoeae. Lab Interpretation Normal (test code = 91445-3) [facility] [place] [facility] [id number] 14:13:00 Test Item Value Reference Range Interpretation Comments Yeast by [place] No Yeast seen (test code = 81327799) Yeast by LISA (test code No Yeast seen = 31354905) Clue Cells (test code = No Clue cells seen 36268169) Epithelial Cells (test Epithelial cells seen code = 73505424) WBCs (test code = WBCs seen 63205796) Trichomonas (test code No Trichomonas seen = 10358700) [facility] CHEST 2 [id number] 14:05:24IMPRESSION: No acute thoracic abnormality. Dictated By: Katey Clarke MD, 03/25/2019 2:01 PM I have reviewed the study and agree with the findings in this report. Signed By: Ernesto Donovan MD, 03/25/2019 2:05 PM Interface, Rad/Mammog In - 03/25/2019 2:12 PM CDTEXAMINATION: XRAY CHEST 2 VIEWS INDICATION: shortness of breath and weight loss in active smoker COMPARISON: Chest radiograph from 06/08/2013 FINDINGS: PA and lateral viewsTUBES and LINES: None.LUNGS: Lungs are well inflated. No consolidations or edema. PLEURA: No effusions or pneumothorax. HEART AND MEDIASTINUM: The cardiomediastinal silhouette isunremarkable. BONES AND SOFT TISSUES: No acute osseous lesion. Soft tissues areunremarkable.UPPER ABDOMEN: No free air under the diaphragm. IMPRESSIONIMPRESSION: No acutethoracic abnormality.Dictated By: Katey Clarke MD, 03/25/2019 2:01 PMI have reviewed the study and agree with the findings in this report.Signed By: Ernesto Donovan MD, 03/25/2019 2:05 [facility] [id number] 12:16:00 Test Item Value Reference Range Interpretation Comments (test code = 80616134) Negative Negative Lab Interpretation (test code = Normal 40208-4) [facility] [id number] 11:11:58MoPaul pimentel MD 03/27/2019 1:40 PMGeneral ProcedureDate/Time: 03/27/2019 1:39 PMPerformed by: Paul Grewal MDAuthorized by: Paul Grewal MD Preparation: Patient was prepped and draped in the usual sterile fashion.Local anesthesia used: yesAnesthesia: local infiltration Anesthesia:Local anesthesia used: yesLocal Anesthetic: lidocaine 1% without epinephrineAnesthetic total: 7 mL Sedation:P atient sedated: no Specimen's removed: nexplanonEstimated blood loss: 2Grafts and Implants: nexplanonPatient tolerance: Patient tolerated the procedure well with no immediate [facility]
== END 2020-03-18 18:38 | disposition home or self-care (01) ==
LOC: ER 16:20
DX: N39.0 Urinary tract infection, site not specified (principal); N10 Acute pyelonephritis; F17.210 Nicotine dependence, cigarettes, uncomplicated; Z88.1 Allergy status to other antibiotic agents
CPT/HCPCS: 87088; 85025; 87086; 80048; 36415; 81025; 87077; 87186; 74177; 99284; Q9967; 81003; 81015

== ENCOUNTER 2020-08-29 17:59 | Emergency (ER) | payer OTHER ==
--- OUTSIDE RECORDS SUMMARY | 2020-08-29 18:02 | XMS REPORT | Continuity of Care Document ---
:1990 Author Organization [facility] t Address [address] [place] [address] Care Team Providers Name Role Phone Asked, Pcp Primary Care Physician Unavailable Chelsea MELTON, Flavia Attending Clinician Lashae Ty, A Attending Clinician [phone] Shoshana MELTON, E Attending Clinician Susannah MCLEAN Attending Clinician Unavailable Philippe MELTON, A Attending Clinician Payers Payer Name Policy Type Policy Number Effective Date Expiration Date Shobha tracy [facility] [id number] 2017 Espinoza watkins [employer] 00:00:00 Health [id number] [address] [address] [facility] [id number] 2019 HEALTH 00:00:00 [place] MED[place] [id number] 2019 00:00:00 Problems Condition Condition Condition Status Onset Resolution Last Treating Co mments Source Name Details Category Date Date Treatment Clinician Date Cocaine Cocaine Disease Active [place] abuse with abuse with 4-30 Me thodi cocaine-in cocaine-in 00:00: st duced mood duced mood 00 disorder disorder Polysubsta Polysubsta Disease Active H arris nce abuse nce abuse 06-18 [facility]al th 00:00: 00 Substance Substance Disease [...] 00 Cough Cough Disease Active 2012-06 [facility] 2- Health 00:00: 00 Mood 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 [place] disorder disorder 0 Health 00:00: 00 Social Social Disease Active 2012-06 [place] problem problem 0 Health 00:00: 00 Eye Eye Disease Active 2011-06 [place] swelling, swelling, 0-13 Heal th left left 00:00: 00 Encounter Encounter Disease Active Vasile ris for for Health medication medication refill [...] Comments Source History of tobacco Cigarette Smoker [facility] use Exposure to Not sure [facility] SARS-CoV-2 (event) Cigarettes smoked 2020-07-01 2020-07-01 [facility] current (pack per 00:00:00 00:00:00 day) - Reported Cigarette 2020-07-01 2020-07-01 [facility] pack-years 00:00:00 00:00:00 Tobacco use and 2020-07-01 2020-07-01 Never used [facility] alth exposure 00:00:00 00:00:00 Alcohol intake 2020-07-01 2020-07-01 [facility]00 non-drinker of alcohol (finding) History [facility] Food 2019-01-09 2019-01-09 1 [place] [facility] Worry 00:00:00 00:00:00 History [facility] Food 2019-01-09 2019-01-09 1 [facility] Scarcity 00:00:00 00:00:00 [birth year] [place] 00:00:00 00:00:00 Christian Smoking Status Start Date Stop Date Source Current every day smoker 2020-07-01 00:00:00 [facility] Medications Ordered Filled Start Stop Current Ordering Indication Dosage Frequency Signature Comments Components Source Medication Medication Date Date Medication? Clinician (SIG) Name Name albuterol Yes Uncomplicat 1{puff} Inhale 1 [place] sulfate 90 07-01 ed asthma, Puff by [facility] mcg/actuati 00:00: unspecified mouth 2 on aebs 00 asthma times severity, daily as unspecified needed for whether Other persistent (shortness of breath). benztropine Yes Extrapyrami .5mg Q.5D Take 1 [place] (COGENTIN) 07-01 elda symptom tablet by [facility] 0.5 mg 00:00: mouth 2 tablet 00 times daily. haloperidoL Yes Psychosis, 5mg Q.5D Take 1 [place] (HALDOL) 5 07-01 unspecified tablet by Health mg tablet 00:00: psychosis mouth 2 00 type times daily. haloperidoL 2019-06 No Psychosis, 5mg Q.5D Take 1 [place] (HALDOL) 5 07-01 unspecified tablet by Health mg tablet 00:00: 00:00 psychosis mouth 2 00 :00 type times daily. benztropine 2019-06 No Extrapyrami .5mg Q.5D Take 1 [place] (COGENTIN) 07-01 elda symptom tablet by Health 0.5 mg 00:00: 00:00 mouth 2 tablet 00 :00 times daily. benztropine 2019-06- No Extrapyrami .5mg Q.5D Take 1 [place] (COGENTIN) 07-29 elda symptom tablet by Health 0.5 mg 00:00: 00:00 mouth 2 tablet 00 :00 times daily. haloperidoL 2019-06- No Psychosis, 5mg Q.5D Take 1 [place] (HALDOL) 5 07-29 unspecified tablet by Health mg tablet 00:00: 00:00 psychosis mouth 2 00 :00 type times daily. haloperidoL 2019-06- No Psychosis, 5mg Q.5D Take 1 [facility] (HALDOL) 5 06-22 unspecified tablet by [facility] mg tablet 00:00: 00:00 psychosis mouth 2 00 :00 type times daily. benztropine 2019-06- No Extrapyrami .5mg Q.5D Take 1 [facility] (COGENTIN) 06-22 elda symptom tablet by [facility] 0.5 mg 00:00: 00:00 mouth 2 tablet 00 :00 times daily. albuterol 2020- No Uncomplicat 1{puff} Inhale 1 [place] sulfate 90 02-18 ed asthma, Puff by [facility] mcg/actuati 00:00: 00:00 unspecified mouth 2 on aebs 00 :00 asthma times severity, daily as unspecified needed for whether Other persistent (shortness of breath). haloperidoL 2019- No Psychosis, 5mg Q.5D Take 1 [facility] (HALDOL) 5 12-18 unspecified tablet by [facility] mg tablet 00:00: 00:00 psychosis mouth 2 00 :00 type times daily. benztropine 2019- No Extrapyrami .5mg Q.5D Take 1 [facility] (COGENTIN) 12-18 elda symptom tablet by [facility] 0.5 mg 00:00: 00:00 mouth 2 tablet 00 :00 times daily. doxepin 2019- No sleep-onset 10mg Take 1 [facility] (SINEQUAN) 11-20 insomnia capsule by [facility] 10 mg 00:00: 00:00 mouth capsule 00 :00 nightly at bedtime as needed for Other (insomnia) . benztropine 2019- No Extrapyrami .5mg Q.5D Take 1 [facility] (COGENTIN) 11-20 elda symptom tablet by [facility] 0.5 mg 00:00: 00:00 mouth 2 tablet 00 :00 times daily. haloperidoL 2019- No Hallucinati 5mg Q.5D Take 1 [facility] (HALDOL) 5 11-20-10 ons, visual tablet by [facility] mg tablet 00:00: 00:00 mouth 2 00 :00 times daily. mirtazapine 2019- No Other 30mg Take 1 Britton rris (REMERON) 11-20- depression tablet by [facility] 30 mg 00:00: 00:00 mouth at tablet 00 :00 bedtime nightly. benztropine 2019-2019- No Extrapyrami .5mg Q.5D Take 1 [facility] (COGENTIN) 10-02 elda symptom tablet by Health 0.5 mg 00:00: 00:00 mouth 2 tablet 00 :00 times daily. haloperidoL 2019-2019- No Hallucinati 5mg Q.5D Take 1 [facility] (HALDOL) 5 10-02 ons, visual tablet by Health mg tablet 00:00: 00:00 mouth 2 00 :00 times daily. mirtazapine 2019-2019- No Other 30mg Take 1 Britton rris (REMERON) 10-02 depression tablet by [facility] 30 mg 00:00: 00:00 mouth at tablet 00 :00 bedtime nightly. doxepin 2019- No sleep-onset 10mg Take 1 [place] (SINEQUAN) 10-02 insomnia capsule by [facility] 10 mg 00:00: 00:00 mouth capsule 00 :00 nightly at bedtime as needed. ALBUTEROL 2019-2019- No Uncomplicat INHALE 2 [place] 90 08-18 ed asthma, PUFFS BY [facility] th mcg/actuati 00:00: 00:00 unspecified MOUTH FOUR on inhaler 00 :00 asthma TIMES severity, DAILY unspecified NEEDED FOR whether WHEEZING persistent ALBUTEROL 2019- 2020- No Uncomplicat INHALE 2 [place] 90 3-10 ed asthma, PUFFS BY [facility] mcg/actuati 00:00: 00:00 unspecified MOUTH FOUR on inhaler 00 :00 asthma TIMES severity, DAILY unspecified NEEDED FOR whether WHEEZING persistent albuterol 2019-2019- No Uncomplicat Inhale by [facility] 90 06-26 ed asthma, mouth. Health mcg/actuati 00:00: 00:00 unspecified on aebs 00 :00 asthma severity, unspecified whether persistent haloperidol 2019- 2020- No Hallucinati 5mg Q.5D Take 1 [place] (HALDOL) 5 06-20 ons, visual tablet by Health mg tablet 00:00: 00:00 mouth 2 00 :00 times daily. benztropine 2019-2019- No Extrapyrami .5mg Q.5D Take 1 [facility] (COGENTIN) 06-20 elda symptom tablet by [facility] 0.5 mg 00:00: 00:00 mouth 2 tablet 00 :00 times daily. mirtazapine No Other 30mg Take 1 Britton rris (REMERON) 06-20 depression tablet by [facility] 30 mg 00:00: 00:00 mouth at tablet 00 :00 bedtime nightly. doxepin No sleep-onset 10mg Take 1 [place] (SINEQUAN) 06-20 insomnia capsule by [facility] 10 mg 00:00: 00:00 mouth capsule 00 :00 nightly at bedtime as needed for Other (insomnia) . albuterol 2018-06 Shortness 2{puff} Inhale 2 [facility] 90 015 10 of breath [facility]: 00:00 mouth 4 on inhaler 00 :00 times daily as needed for Wheezing. Vital Signs Vital Name Observation Time Observation Value Comments Source Systolic blood pressure 2020-02-19 08:44:00 112 mm[Hg] [facility] Diastolic blood pressure 2020-02-19 08:44:00 73 mm[Hg] [facility] Heart rate 2020-02-19 08:44:00 66 /min [facility] Body temperature 2020-02-19 08:44:00 36.72 Janis Ashlyn is [facility] Respiratory rate 2020-02-19 08:44:00 16 /min Ashlyn is [facility] Body height 2020-02-19 08:44:00 162.6 cm [facility] Body weight 2020-02-19 08:44:00 57.153 kg [facility] BMI 2020-02-19 08:44:00 21.63 kg/m2 [facility] Procedures Procedure Date / Time Performed Performing Clinician [facility] e PULMONARY FUNCTION TEST 2020-07-07 14:23:09 Unknown, Provider Britton [facility] CORONAVIRUS, COVID-19, GABRIELE 2020-07-06 11:30:00 Bulmaro Mclean [facility] Plan of Care Planned Activity Planned Date Details Comments Source Future Scheduled Test 2020-03-25 00:00:00 Screening for [facility] malignant neoplasm of cervix (procedure) [code = 728739903] Future Scheduled Test 2020-03-25 00:00:00 Screening for [facility] malignant neoplasm of cervix (procedure) [code = 931210823] Future Scheduled Test 2020-03-11 00:00:00 IMM Influenza [facility] Seasonal Oct to August (>/= 19 yrs) [code = IMM Influenza Seasonal Oct to August (>/= 19 yrs)] Encounters Start End Encounter Admission Attending Care Care Encounter Source Date/Time Date/Time Type Type Clinicians Facility Department ID 2020-07-07 2020-07-07 Outpatient CHELSEA [facility] [id number] [place] 00:00:00 00:00:00 LEIF [facility] 2020-05-20 2020-05-20 Outpatient ASHLEYKarenBULMARO [facility] [id number] [place] 00:00:00 00:00:00 2020-04-22 2020-04-22 Outpatient [facility] [id number] [place] 00:00:00 00:00:00 Health 2020-04-16 2020-04-16 Outpatient [facility] [id number] [place] 00:00:00 00:00:00 [facility] 2020-02-19 2020-02-19 [facility] [id number] [place] 08:44:11 09:50:[address] [facility] 2019-12-19 2019-12-19 Outpatient [facility] [id number] [place] 07:14:13 07:14:13 [facility] 2019-10-17 2019-10-17 Outpatient [facility] [id number] [place] 00:00:00 00:00:00 Health 2019-08-29 2019-08-29 Outpatient [facility] [id number] [place] 00:00:00 00:00:00 [facility] 2019-08-21 2019-08-21 Outpatient [facility] [id number] [place] 00:00:00 00:00:00 Health 2019-07-18 2019-07-18 Outpatient [facility] [id number] [place] 00:00:00 00:00:00 Health 2019-06-26 2019-06-26 Outpatient [facility] [id number] [place] 09:36:52 09:36:52 Health 2019-06-20 2019-06-20 Outpatient [facility] [id number] [place] 15:00:25 15:00:25 Health 2019-03-25 2019-03-25 Outpatient [facility] [id number] [place] 13:29:05 13:29:05 Health 2019-03-25 2019-03-25 Outpatient [facility] [id number] [place] 13:16:25 13:16:25 Health 2019-03-25 2019-03-25 Outpatient [facility] [id number] [place] 10:33:06 10:33:06 [facility] 2019-03-25 2019-03-25 Outpatient [facility] [id number] [place] 00:00:00 00:00:00 [facility] 2019-03-25 2019-03-25 Outpatient [facility] [id number] [place] 00:00:00 00:00:00 [facility] 2019-03-04 2019-03-04 Outpatient [facility] [id number] [place] 09:34:32 09:34:32 [facility] 2019-02-28 2019-02-28 Outpatient [facility] [id number] [place] 00:00:00 00:00:00 [facility] 2019-01-13 2019-01-13 Outpatient [facility] [id number] [place] 00:00:00 00:00:00 [facility] 2019-01-09 2019-01-09 Outpatient [facility] [id number] [place] 09:23:26 09:23:26 [facility] 2018-12-06 2018-12-06 Outpatient [facility] [id number] [place] 12:26:40 12:26:40 [facility] 2018-10-10 2018-10-10 Outpatient [facility] [id number] [place] 00:00:00 00:00:00 [facility] 2018-09-20 2018-09-20 Outpatient [facility] [id number] [place] 13:19:04 13:19:04 [facility] 2018-09-06 2018-09-06 Outpatient [facility] [id number] [place] 00:00:00 00:00:00 [facility] 2018-08-16 2018-08-16 Outpatient [facility] [id number] [place] 00:00:00 00:00:00 [facility] 2018-05-31 2018-05-31 Outpatient [facility] [id number] [place] 14:22:43 14:22:43 [facility] 2018-04-19 2018-04-19 Outpatient [facility] [id number] [place] 14:54:22 14:54:22 [facility] 2018-04-19 2018-04-19 Outpatient [facility] [id number] [place] 13:54:27 13:54:27 [facility] 2018-04-16 2018-04-16 Outpatient [facility] [id number] [place] 00:00:00 00:00:00 [facility] 2018-03-22 2018-03-22 Outpatient [facility] [id number] [place] 14:01:40 14:01:40 [facility] 2018-03-22 2018-03-22 Outpatient [facility] [id number] [place] 00:00:00 00:00:00 [facility] 2018-03-01 2018-03-01 Outpatient [facility] [id number] [place] 00:00:00 00:00:00 Health 2018-02-05 2018-02-05 Outpatient [facility] [id number] [place] 00:00:00 00:00:00 [facility] 2018-02-05 2018-02-05 Outpatient [facility] [id number] [place] 00:00:00 00:00:00 [facility] 2018-02-01 2018-02-01 Outpatient [facility] [id number] [place] 13:11:11 13:11:11 Health 2018-01-29 2018-01-29 Outpatient [facility] [id number] [place] 00:00:00 00:00:00 [facility] 2018-01-28 2018-01-28 Emergency [facility] [id number] [place] 08:37:35 08:37:35 [facility] 2018-01-23 2018-01-23 Emergency [facility] [id number] [place] 10:45:00 10:45:00 Health Results Test Description Test Time Test Comments Results Result Comments Source PULMONARY FUNCTION TEST 2020-07-07 14:23:09 Test Item Value Reference Range Interpretation Comme nts TEXT (test code = [id number] [facility] 3333) Report With 75 Characters.txt [facility]
--- NOTE | 2020-08-29 18:46 | EDPHYS ---
Physician Documentation [facility] Name: Gretchen Quintero Age: 30 yrs Sex: Female : 1990 Arrival Date: 08/29/2020 Time: 18:08 Bed 7 Private MD: ED Physician Mariam Coles HPI: 08/29 18:36 This 30 yrs old Female presents to ER via EMS with complaints of Anxiety, ma2 hearing voices . 18:36 Onset: The symptoms/episode began/occurred gradually, 1 week(s) ago. Associated signs ma2 and symptoms: Pertinent negatives: ataxia, chest pain, combativeness, diaphoresis, diarrhea. Severity of symptoms: At their worst the symptoms were mild in the emergency department the symptoms are unchanged. The patient has experienced similar episodes in the past. hx of schizophrenia and bipolar she is been hearing voices recently and been angry screeming at people. she would like a medication, she is homeless no insurance unable to see a psychiatrist only at [facility] she is unable to drive there this week and would like a prescription. no alcohol or recreational drugs, she franks no si or hi . 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 - Social history:: Smoking status: Patient reports the use of cigarette tobacco products, smokes one-half pack cigarettes per day, Patient/guardian denies using alcohol, street drugs, The patient lives with family. - Family history:: not pertinent. ROS: 18:36 Constitutional: Negative for fever, chills, and weight loss. ma2 18:36 All other systems are negative. Exam: 18:36 Constitutional: This is a well developed, well nourished patient who is awake, alert, ma2 and in no acute distress. Head/Face: Normocephalic, atraumatic. Eyes: Pupils equal round and reactive to light, extra-ocular motions intact. Lids and lashes normal. Conjunctiva and sclera are non-icteric and not injected. Cornea within normal limits. Periorbital areas with no swelling, redness, or edema. ENT: Nares patent. No nasal discharge, no septal abnormalities noted. Tympanic membranes are normal and external auditory canals are clear. Oropharynx with no redness, swelling, or masses, exudates, or evidence of obstruction, uvula midline. Mucous membranes moist. Neck: Trachea midline, no thyromegaly or masses palpated, and no cervical lymphadenopathy. Supple, full range of motion without nuchal rigidity, or vertebral point tenderness. No Meningismus. Chest/axilla: Normal chest wall appearance and motion. Nontender with no deformity. No lesions are appreciated. Cardiovascular: Regular rate and rhythm with a normal S1 and S2. No gallops, murmurs, or rubs. Normal PMI, no JVD. No pulse deficits. Respiratory: Lungs have equal breath sounds bilaterally, clear to auscultation and percussion. No rales, rhonchi or wheezes noted. No increased work of breathing, no retractions or nasal flaring. MS/ Extremity: Pulses equal, no cyanosis. Neurovascular intact. Full, normal range of motion. Neuro: Awake and alert, GCS 15, oriented to person, place, time, and situation. Cranial nerves II-XII grossly intact. Motor strength 5/5 in all extremities. Sensory grossly intact. Cerebellar exam normal. Normal gait. 18:36 Psych: Behavior/mood is anxious, Affect is calm, Oriented to person, place, time, Patient has no thoughts/intents to harm self or others. Patient having thoughts of suicide. Judgement / Insight is normal. Delusions/hallucinations are not present. 18:46 CT study not indicated or reported. Reason for not performing CT: na ma2 Vital Signs: 18:08 BP 112 / 81; Pulse 112; Resp 16 S; Temp 98.7(TE); Pulse Ox 99% on R/A; Weight 47.63 kg ca1 (R); Height 5 ft. 4 in. (162.56 cm) (R); Pain 0/10; 18:50 BP 104 / 82; Pulse 101; Resp 18 S; Pulse Ox 100% on R/A; ca1 19:10 BP 107 / 66; Pulse 90; Resp 18; Temp 98.6; Pulse Ox 99% ; ea 18:08 Body Mass Index 18.02 (47.63 kg, 162.56 cm) ca1 MDM: 18:32 Patient medically screened. ma2 18:36 Differential diagnosis: likely schizophrenia bipolar with psychotic feature she does ma2 not have depression at this time no emergent condition such as si or i or severe disorganization or severe avh. she has normal judgment and seems able to take care of herself. although this is not within the scope of emergency medicine she may benefit from starting an antipsychotic medication in er. as she does not have pcp or psychiatrist. will start her on olanzapine, i discussed side effects, and need for blood draw for cbc and lft in 1 week, and need to wait for 2 weeks for symptoms improvement, i have also discussed interaction with alcohol and that she cannot be . in 2 weeks she will go to [place] to [facility] and follow p with the pending sale to [facility], [facility], which she is familiar with. she will return to ed for any worsening of her symptoms . Data reviewed: vital signs, nurses notes. Counseling: I had a detailed discussion with the patient and/or guardian regarding: the historical points, exam findings, and any diagnostic results supporting the discharge/admit diagnosis, the presence of at least one elevated blood pressure reading (>120/80) during this emergency department visit, the need for outpatient follow up. Response to treatment: the patient's symptoms have markedly improved after treatment. Administered Medications: 18:35 Drug: Ativan 1 mg Route: PO; ca1 19:03 Follow up: Response: No adverse reaction ca1 Disposition: 08/29/20 18:45 Discharged to Home. Impression: Schizophrenia, unspecified. - Condition is Stable. - Discharge Instructions: Schizophrenia. - Prescriptions for Zyprexa 5 mg Oral tablet - take 1 tablet by ORAL route once daily; 30 tablet. - Medication Reconciliation Form, Thank You Letter, Antibiotic Education, Prescription Opioid Use form. - Follow up: Private Physician; When: Tomorrow; Reason: Continuance of care. Signatures: Daisy Burnett RN RN ea Alzahri, Mohammad, MD MD ga2 Gela Luis RN RN ca1 Corrections: (The following items were deleted from the chart) 19:18 18:45 08/29/2020 18:45 Discharged to Home. Impression: Schizophrenia, unspecified. ea Condition is Stable. Prescriptions for Zyprexa 5 mg Oral tablet - take 1 tablet by ORAL route once daily; 30 tablet. and Forms are Medication Reconciliation Form, Thank You Letter, Antibiotic Education, Prescription Opioid Use. Follow up: Private Physician; When: Tomorrow; Reason: Continuance of care. ma2
--- NOTE | 2020-08-29 18:46 | ER ---
Nurse's Notes [facility] Name: Gretchen Quintero Age: 30 yrs Sex: Female : 1990 Arrival Date: 08/29/2020 Time: 18:08 Bed 7 Private MD: Diagnosis: Schizophrenia, unspecified Presentation: 08/29 18:08 Chief complaint: EMS states: She says she's having episodes of schizophrenia and ca1 anxiety. That her current medication is not working. VS stable. HX of schizophrenia, bipolar, depression, anxiety, PTSD. Coronavirus screen: Client denies travel out of the [place] in the last 14 days. At this time, the client does not indicate any symptoms associated with coronavirus-19. Ebola Screen: Patient negative for fever greater than or equal to 101.5 degrees Fahrenheit, and additional compatible Ebola Virus Disease symptoms Patient denies exposure to infectious person. Patient denies travel to an Ebola-affected area in the 21 days before illness onset. No symptoms or risks identified at this time. Initial Sepsis Screen: Does the patient meet any 2 criteria? No. Patient's initial sepsis screen is negative. Does the patient have a suspected source of infection? No. Patient's initial sepsis screen is negative. Risk Assessment: Do you want to hurt yourself or someone else? Unable to obtain Other: Pt states, "am not sure". Onset of symptoms was August 29, 2020. 18:08 Method Of Arrival: EMS: [facility] ca1 18:08 Acuity: RIZWANA 3 ca1 [employer]PER[employer]OR: 18:12 LMP N/A - control method ca1 Historical: - Allergies: 18:12 Amoxicillin; ca1 - Home Meds: 18:12 Haldol Oral [Active]; cordetin [Active]; ca1 - PMHx: 18:12 PTSD; Bipolar disorder; Schizophrenia; Depression; Anxiety; ca1 - PSHx: 18:12 None; ca1 - Immunization history:: Flu vaccine is not up to date. - Social history:: Smoking status: Patient reports the use of cigarette tobacco products, smokes one-half pack cigarettes per day, Patient/guardian denies using alcohol, street drugs, The patient lives with family. - Family history:: not pertinent. Screenin:22 Abuse screen: Denies threats or abuse. Denies injuries from another. Nutritional ca1 screening: No deficits noted. Tuberculosis screening: No symptoms or risk factors identified. Fall Risk None identified. Assessment: 18:22 General: Appears in no apparent distress. comfortable, Behavior is calm, cooperative, ca1 appropriate for age. Pain: Denies pain. Neuro: Level of Consciousness is awake, alert, obeys commands, Oriented to person, place, time, situation. Cardiovascular: Heart tones S1 S2 present Capillary refill < 3 seconds Patient's skin is warm and dry. Respiratory: Airway is patent Respiratory effort is even, unlabored, Respiratory pattern is regular, symmetrical. GI: Abdomen is flat, non-distended, Bowel sounds present X 4 quads. Abd is soft and non tender X 4 quads. : No deficits noted. No signs and/or symptoms were reported regarding the genitourinary system. EENT: No deficits noted. No signs and/or symptoms were reported regarding the EENT system. Derm: Skin is intact, is healthy with good turgor, Skin is pink, warm \\T\\ dry. Musculoskeletal: Circulation, motion, and sensation intact. Capillary refill < 3 seconds. 18:50 Reassessment: Dr. Coles at bedside. ca1 19:16 Reassessment: Patient and/or family updated on plan of care and expected duration. Pain ea level reassessed. Patient is alert, oriented x 3, equal unlabored respirations, skin warm/dry/pink. Discharge instruction given to patient verbalized the understanding of instruction. Pt left ED ambulatory tolerating well. Vital Signs: 18:08 BP 112 / 81; Pulse 112; Resp 16 S; Temp 98.7(TE); Pulse Ox 99% on R/A; Weight 47.63 kg ca1 (R); Height 5 ft. 4 in. (162.56 cm) (R); Pain 0/10; 18:50 BP 104 / 82; Pulse 101; Resp 18 S; Pulse Ox 100% on R/A; ca1 19:10 BP 107 / 66; Pulse 90; Resp 18; Temp 98.6; Pulse Ox 99% ; ea 18:08 Body Mass Index 18.02 (47.63 kg, 162.56 cm) ca1 ED Course: 18:08 Patient arrived in ED. ca1 18:09 Mariam Coles MD is Attending Physician. ma2 18:10 Triage completed. ca1 18:12 Arm band placed on right wrist. ca1 18:22 Gela Luis, RN is Primary Nurse. ca1 18:22 Patient has correct armband on for positive identification. Bed in low position. Call ca1 light in reach. Side rails up X 1. Pulse ox on. NIBP on. Warm blanket given. 19:14 No provider procedures requiring assistance completed. Patient did not have IV access ea during this emergency room visit. Administered Medications: 18:35 Drug: Ativan 1 mg Route: PO; ca1 19:03 Follow up: Response: No adverse reaction ca1 Outcome: 18:45 Discharge ordered by . german 19:15 Discharged to home ambulatory, with family. ea 19:15 Condition: stable 19:15 Discharge instructions given to patient, Instructed on discharge instructions, follow up and referral plans. medication usage, Demonstrated understanding of instructions, follow-up care, medications, Prescriptions given X 1. 19:18 Patient left the ED. ea Signatures: Daisy Burnett RN RN Mariam Romero MD MD [facility] Gela Luis, RN RN ca1 Corrections: (The following items were deleted from the chart) 18:50 18:08 Risk Assessment: Do you want to hurt yourself or someone else? Patient reports no ca1 desire to harm self or others. ca1
[2020-08-29] MEDS ORDERED: LORAZEPAM 1 MG TABLET ONE (18:51)
[2020-08-29 19:51] VITALS: BP 107/66; TEMP 98.6; O2SAT 99
== END 2020-08-29 19:18 | disposition home or self-care (01) ==
LOC: ER 17:59
DX: F20.9 Schizophrenia, unspecified (principal); F17.210 Nicotine dependence, cigarettes, uncomplicated
CPT/HCPCS: 99284